=== PATIENT | male | born 1955 | race African-American/Black ===

== ENCOUNTER 2019-04-30 21:58 | Emergency (ER) | payer SELFPAY ==
[~2019-04-30] VITALS: Ht 182.9 cm; Wt 88.2 kg
[2019-04-30 22:05] VITALS: BP 131/81; Ht 182.9 cm; Wt 88.2 kg
[2019-04-30] MEDS ORDERED: NORVASC10 MG PO (22:06)
== END 2019-04-30 22:50 | disposition left against medical advice (07) ==
LOC: D.ER 21:58
DX: R10.9 Unspecified abdominal pain (principal)